=== PATIENT | male | born 1950 | race Caucasian/White ===

== ENCOUNTER 2024-03-21 02:15 | Emergency (ER) | payer OTHER, SELFPAY ==
[2024-03-21 02:15] VITALS: BMI 31.8
[2024-03-21 02:17] VITALS: BP 150/68
[2024-03-21 02:28] VITALS: BP 146/70
--- NOTE | 2024-03-21 02:31 | ED.GENMED ---
History of Present Illness
<AMAURI Garcia - Last Filed: 03/21/24 02:45>
General
Chief Complaint: Heart Rate Problem
Source: patient
Exam Limitations: none
Time Seen by Provider: 03/21/24 02:21
Travel History
Have you had any contact with someone who has COVID-19?: No
Do you have any symptoms of coronavirus? Fever > 100 degrees, chills, cough, shortness of breath, sore throat, loss of taste or smell, muscle aches, or headache?: No
History of Present Illness
History of Present Illness:
73 year old male with hx of afib on Eliquis, HTN, HLD, cardiac stent in place who presents with abnormal heart rate with associated 'sluggishness' that began 4 days ago. Pt states for the past 4 days he has been feeling fatigued. He states his
noticed that he has been looking not his normal self. States he feels this way when his heart rate is abnormal. He has an man on his phone connected to his watch that monitors his heart rate. He states for the past 4 days the rate has been
irregular, highest was 120s. Tonight he checked the rate on his phone and it was high and went to sleep hoping it would resolve. He woke up with the rate still abnormal, which prompted his visit. Currently, pt denies chest pain, SOB, head ache,
dizziness, fevers/chills, cough, recent illness, abdominal pain, n/v/d.
Past History
<AMAURI Garcia - Last Filed: 03/21/24 02:45>
Past History
ED Past Medical History: CAD, HTN, Hypercholesterolemia and VT
ED Past Surgical History: None and Cardiac
Social History
Tobacco: Non-smoker (Occasional cigar)
Alcohol: Occasional
Drug: None
Personal:
Living: with family
Employment: Employed
Family History
Family History: Negative Early CAD
Review of Systems
<ST JoseRI - Last Filed: 03/21/24 02:45>
Review of Systems
Allergies reviewed?: Yes
All Other Systems: ROS reviewed and negative except as documented in HPI and ROS
Constitutional: Reports fatigue
EENT: Reports no symptoms
Respiratory: Reports no symptoms
Cardiac: Reports no symptoms
ABD/GI: Reports no symptoms
: Reports no symptoms
Musculoskeletal: Reports no symptoms
Skin: Reports no symptoms
Neurological: Reports no symptoms
Endocrine: Reports no symptoms
Hematologic/Lymphatic: Reports no symptoms
Psychiatric: Reports no symptoms
Phy Exam
<ST JoseRI - Last Filed: 03/21/24 02:45>
General Physical Exam
General Presentation: well appearing and no apparent distress
General age: appears stated age
General Skin: warm and dry
General Habitus: normal
General Mental: alert
General Hydration: appears well hydrated
Cardiovascular Exam
Cardiovascular Exam: regular rate/rhythm, no edema, no gallop, no murmur and normal peripheral pulses
Pulmonary Exam
Pulmonary Exam: lungs clear, no respiratory distress, no rales, no crackles, no rhonchi, no wheezing and no cough
Skin Exam
Skin Exam: normal color and warm/dry
Psychiatric Exam
Psychiatric Exam: normal mood/affect
Course
<Maranda Ivey RUST - Last Filed: 03/21/24 02:45>
Orders/Labs/Results
Orders:
Orders
03/21/24 02:19
Electrocardiogram (*1) Urgent
Reason for Study: Atrial Fibrillation
EKG- Treatment ONCE
03/21/24 02:40
Complete Blood Count/With Diff Urgent
Comprehensive Metabolic Panel Urgent
Troponin I Urgent
03/21/24 03:40
Potassium Chloride 10% Elixir [KCl Elixir] 40 meq PO NOW STA
03/21/24 04:04
Electrocardiogram (*1) Urgent
Reason for Study: Atrial Fibrillation
03/21/24 04:05
EKG- Treatment ONCE
Abnormal Lab Results
03/21/24
02:40
WBC 12.3 H 10^3/uL
(4.8-10.8)
RBC 4.56 L 10^6/uL
(4.70-6.10)
MCH 31.1 H pg
(27.0-31.0)
MPV 13.3 H fL
(7.4-10.4)
Absolute Neuts (auto) 9.1 H 10^3/uL
(1.4-6.5)
Absolute Monos (auto) 1.6 H 10^3/uL
(0.1-0.6)
Lymphocytes % 10.6 L %
(20.5-51.1)
Monocytes % 13.3 H %
(1.7-9.3)
Potassium 3.3 L mmol/L
(3.5-5.1)
BUN 22 H mg/dl
(9-20)
Glucose 117 H mg/dl
(70-99)
03/21/24 02:40
03/21/24 02:40
Vital Signs
Initial and Last Documented VS:
Initial Vital Signs
Temp Pulse Resp BP Pulse Ox
98.1 F 72 22 150/68 96
03/21/24 02:17 03/21/24 02:17 03/21/24 02:17 03/21/24 02:17 03/21/24 02:17
Last Documented Vital Signs
Temp Pulse Resp BP Pulse Ox
98.1 F 69 17 132/72 94
03/21/24 02:17 03/21/24 03:00 03/21/24 03:00 03/21/24 03:00 03/21/24 03:00
<Ozzy Garcia, DO - Last Filed: 03/21/24 04:30>
Orders/Labs/Results
Orders:
Orders
03/21/24 02:19
Electrocardiogram (*1) Urgent
Reason for Study: Atrial Fibrillation
EKG- Treatment ONCE
03/21/24 02:40
Complete Blood Count/With Diff Urgent
Comprehensive Metabolic Panel Urgent
Troponin I Urgent
03/21/24 03:40
Potassium Chloride 10% Elixir [KCl Elixir] 40 meq PO NOW STA
03/21/24 04:04
Electrocardiogram (*1) Urgent
Reason for Study: Atrial Fibrillation
03/21/24 04:05
EKG- Treatment ONCE
Abnormal Lab Results
03/21/24
02:40
WBC 12.3 H 10^3/uL
(4.8-10.8)
RBC 4.56 L 10^6/uL
(4.70-6.10)
MCH 31.1 H pg
(27.0-31.0)
MPV 13.3 H fL
(7.4-10.4)
Absolute Neuts (auto) 9.1 H 10^3/uL
(1.4-6.5)
Absolute Monos (auto) 1.6 H 10^3/uL
(0.1-0.6)
Lymphocytes % 10.6 L %
(20.5-51.1)
Monocytes % 13.3 H %
(1.7-9.3)
Potassium 3.3 L mmol/L
(3.5-5.1)
BUN 22 H mg/dl
(9-20)
Glucose 117 H mg/dl
(70-99)
03/21/24 02:40
03/21/24 02:40
Vital Signs
Initial and Last Documented VS:
Initial Vital Signs
Temp Pulse Resp BP Pulse Ox
98.1 F 72 22 150/68 96
03/21/24 02:17 03/21/24 02:17 03/21/24 02:17 03/21/24 02:17 03/21/24 02:17
Last Documented Vital Signs
Temp Pulse Resp BP Pulse Ox
98.1 F 69 17 132/72 94
03/21/24 02:17 03/21/24 03:00 03/21/24 03:00 03/21/24 03:00 03/21/24 03:00
<AMAURI Garcia - Last Filed: 03/21/24 02:45>
MDM/Problems Addressed
Differential Diagnosis Includes:
afib
MDM/Problems Addressed:
73 year old male who presents with feeling sluggish with abnormal heart rate x 4 days.
Chronic conditions affecting care: HTN and Arrhythmia
<AMAURI Garcia - Last Filed: 03/21/24 02:45>
*Critical Care Note
Total Time (30-74mins, 75-104mins- exclusive of procedures): Not Applicable
<Ozzy Garcia DO - Last Filed: 03/21/24 04:30>
Update Note
Update Note:
Patient was noted to go into atrial fibrillation, he is rate controlled. Stable for discharge. Continue medications. Follow-up with cardiology. Return precautions given.
ED Attending Note
<AMAURI Garcia - Last Filed: 03/21/24 02:45>
-
Portions of this chart may have been created with voice recognition software.� Occasional wrong word or��sound alike� substitutions may have occurred due to the inherent limitations of voice recognition software.
<Ozzy Garcia DO - Last Filed: 03/21/24 04:30>
ED Attending Note
Patient seen and examined by attending physician: Yes
I performed a history and physical exam of patient and discussed management with resident, I reviewed resident's note and agree with documented findings and plan of care.: Yes
ED Attending Note:
I reviewed and agree with history and treatment plan by Maranda Ivey. My exam revealed
Physical Exam
General: no apparent distress, not acutely ill
Neck: supple. no meningeal signs. normal posterior pharynx
Heart: s1/s2 regular rate and rhythm, no murmur. equal radial
pulses.
HEENT: Pupils equal round reactive to light, EOMI
Lungs: no acute respiratory distress. clear bilaterally
Abdomen: normal bowel sounds. not tender. no CVAT
Neuro: alert and oriented. no focal neurological deficits cranial nerves II through XII intact
Skin: no rash
Psychiatric: well kept. interactive and cooperative
Extremities: no edema. no calf tenderness. negative homans. good distal pulses
EKG showing sinus rhythm with PVCs. No signs of atrial fibrillation. He has had episodes of tachycardia recently, none seen on monitor in ED. Will check baseline labs, if negative will discharge with cardiology follow-up.
Discharge Plan
Departure
Patient Disposition: Home (Routine Discharge)
Date of Disposition: 03/21/24
Time of Disposition: 03:41
Patient with high blood pressure during this ER visit?: Yes
Condition: Good
Discharge Problem:
Acute hypokalemia, Atrial fibrillation
Instructions: Hypokalemia, Atrial Fibrillation (DC), High-potassium diet, BLOOD PRESSURE
Prescriptions:
No Action
atorvastatin 40 MG tablet
40 mg PO QPM
carvedilol 12.5 MG tablet
3.25 mg PO BID
chlorthalidone 25 MG tablet
25 mg PO DAILY
losartan 100 MG tablet
100 mg PO DAILY
Eliquis 5 MG tablet
5 mg PO BID Qty: 30 0RF
acetaminophen [Tylenol] 325 MG capsule
650 mg PO PRN PRN (Reason: pain)
amlodipine 5 mg Tablet
5 mg PO BID
Referrals:
Willie Givens MD [Active] - Call in 1-3 days for appt
Brianna Castro PA-C [Family Provider] - Call in 1-3 days for appt
Interventions
Interventions:
*Risk Screen - Suicide Last Done: 03/21/24 02:17
*General Assessment Last Done: 03/21/24 02:32
*Neglect/Abuse Screening Last Done: 03/21/24 02:17
ED- Fall Risk Assessment Last Done: 03/21/24 02:36
*ED COVID-19 Vaccine History Last Done: 03/21/24 02:32
ED- Cardiac Assessment Last Done: 03/21/24 02:33
ED- Pulmonary Assessment Last Done: 03/21/24 02:33
Discharge Date and Time
Print Language: IRAQI
[2024-03-21 03:00] VITALS: BP 132/72
[2024-03-21 03:02] LABS: % Basophils 0.3 % (0-2); % Eosinophils 1.8 % (0-6); % Immature Granulocytes 0.3 % (0-0.5); % Lymphocytes 10.6 % (20.5-51.1); % Monocytes 13.3 % (1.7-9.3); % Neutrophils 73.7 % (42.2-75.2); Absolute Eosinophils 0.2 10^3/uL (0-0.7); Absolute Lymphocytes 1.3 10^3/uL (1.2-3.4); Absolute Monocytes 1.6 10^3/uL (0.1-0.6); Absolute Neutrophils 9.1 10^3/uL (1.4-6.5); Hematocrit 39.3 % (39.0-52.0); Hemoglobin 14.2 g/dL (13.0-18.0); Mean Corp Hgb Conc. 36.1 g/dL (33.0-37.0); Mean Corpuscular Hgb 31.1 pg (27.0-31.0); Mean Corpuscular Volume 86.2 fL (80.0-94.0); Mean Platelet Volume 13.3 fL (7.4-10.4); Nucleated Red Blood Cells % 0 % (-); Platelet Count 152 10^3/uL (130-400); Red Blood Cell Count 4.56 10^6/uL (4.70-6.10); Red Cell Dist. Width 12.2 % (11.5-14.5); White Blood Cell Count 12.3 10^3/uL (4.8-10.8)
[2024-03-21 03:15] LABS: ALT (SGPT) 23 U/L (0-50); AST (SGOT) 32 U/L (17-59); Albumin 3.9 g/dl (3.5-5.0); Alkaline Phosphatase 69 U/L (38-126); Blood Urea Nitrogen 22 mg/dl (9-20); Calcium 9.1 mg/dl (8.4-10.2); Carbon Dioxide 28 mmol/L (22-30); Chloride 103 mmol/L (98-107); Estimated Creatinine Clearance 80 ml/min; Glucose 117 mg/dl (70-99); Potassium 3.3 mmol/L (3.5-5.1); Sodium 138 mmol/L (135-145); Total Bilirubin 0.9 mg/dl (0.2-1.3); Total Protein 6.5 g/dl (6.3-8.2); eGFR > 60.00
[2024-03-21 03:27] LABS: Troponin I 0.015 ng/ml
[2024-03-21] MEDS: KCL ELIXIR 40 MEQ PO (03:52)
[2024-03-21 04:00] VITALS: BP 136/85
== END 2024-03-21 05:05 | disposition home or self-care (01) ==
LOC: EMR 02:15
PROVIDERS: EMERGENCY PHYSICIAN Emergency Medicine; FAMILY PHYSICIAN Physician Assistant Medical
DX: I48.91 Unspecified atrial fibrillation (principal); E87.6 Hypokalemia; I10 Essential (primary) hypertension; E78.00 Pure hypercholesterolemia, unspecified
CPT/HCPCS: 99284; 80053; 84484; 85025; 93005

== ENCOUNTER → 2024-05-31 13:04 | Outpatient (REF) | payer OTHER, SELFPAY | LOC: MRI 3T 13:04 | PROVIDERS: ATTENDING PHYSICIAN Radiology Radiation Oncology; FAMILY PHYSICIAN Physician Assistant Medical | DX: C61 Malignant neoplasm of prostate (principal) | CPT/HCPCS: 72197; A9575 ==

== ENCOUNTER → 2024-07-13 12:16 | Outpatient (REF) | payer OTHER, SELFPAY | LOC: PET 12:16 | PROVIDERS: ATTENDING PHYSICIAN Radiology Radiation Oncology | DX: C61 Malignant neoplasm of prostate (principal) | CPT/HCPCS: 78815 ==

== ENCOUNTER 2024-08-26 07:50 | Day surgery (SDC) | payer OTHER, SELFPAY ==
[2024-08-05 10:09] VITALS: BMI 32.0
[2024-08-05 10:43] LABS: % Basophils 0.6 % (0-2); % Eosinophils 4.7 % (0-6); % Immature Granulocytes 0.4 % (0-0.5); % Lymphocytes 24.6 % (20.5-51.1); % Monocytes 12.4 % (1.7-9.3); % Neutrophils 57.3 % (42.2-75.2); Absolute Eosinophils 0.2 10^3/uL (0-0.7); Absolute Lymphocytes 1.2 10^3/uL (1.2-3.4); Absolute Monocytes 0.6 10^3/uL (0.1-0.6); Absolute Neutrophils 2.8 10^3/uL (1.4-6.5); Hematocrit 43.1 % (39.0-52.0); Hemoglobin 14.6 g/dL (13.0-18.0); Mean Corp Hgb Conc. 33.9 g/dL (33.0-37.0); Mean Corpuscular Hgb 29.6 pg (27.0-31.0); Mean Corpuscular Volume 87.2 fL (80.0-94.0); Mean Platelet Volume 12.8 fL (7.4-10.4); Nucleated Red Blood Cells % 0 % (-); Platelet Count 188 10^3/uL (130-400); Red Blood Cell Count 4.94 10^6/uL (4.70-6.10); Red Cell Dist. Width 12.7 % (11.5-14.5); White Blood Cell Count 4.9 10^3/uL (4.8-10.8)
[2024-08-05 10:52] LABS: INR 1.23; PT 15.4 Sec (11.4-14.6)
[2024-08-05 11:19] LABS: ALT (SGPT) 24 U/L (0-50); AST (SGOT) 30 U/L (17-59); Albumin 4.1 g/dl (3.5-5.0); Alkaline Phosphatase 62 U/L (38-126); Blood Urea Nitrogen 21 mg/dl (9-20); Calcium 9.6 mg/dl (8.4-10.2); Carbon Dioxide 29 mmol/L (22-30); Chloride 103 mmol/L (98-107); Estimated Creatinine Clearance 69 ml/min; Glucose 110 mg/dl (70-99); Magnesium 2.1 mg/dl (1.6-2.3); Sodium 142 mmol/L (135-145); Total Bilirubin 1.4 mg/dl (0.2-1.3); Total Protein 6.7 g/dl (6.3-8.2); eGFR > 60.00
--- NOTE | 2024-08-05 12:10 | HPS.HSE ---
Family Physician
-
Family Physician: Brianna Castro
Chief Complaint
-
Paroxysmal atrial fibrillation.
History of Present Illness
The patient is a 73 year old male presenting today with paroxysmal atrial fibrillation. He was first diagnosed with atrial fibrillation in 2019. The patient describes a history of palpitations, exertional dyspnea, and fatigue associated
with this diagnosis. He previously underwent 2 cardioversions secondary to his arrhythmia. He is on current pharmacological therapy with Carvedilol. He has been compliant with Eliquis for oral anticoagulation. He notes that his current symptoms
greatly interfere with his activities of daily living and overall impact his quality of life. He is interested in pursuing pulmonary vein isolation for further arrhythmia management. He denies any significant complaints today such as chest pain,
shortness of breath at rest, nausea, vomiting, diarrhea, lightheadedness, dizziness, cough, sore throat, or fever.
Medical History
Past Medical History
Past Medical History: Reports Other
Additional Past Medical History:
1. Paroxysmal atrial fibrillation, status post cardioversion x2; pharmacological therapy with Carvedilol, oral anticoagulation with Eliquis.
2. Hypertension.
3. Hyperlipidemia.
4. CAD/anterior STEMI complicated by ventricular fibrillation arrest, 2010, status post PCI with bare metal stent to LAD.
5. PVCs.
6. Incomplete right bundle branch block.
7. Venous insufficiency.
8. Obstructive sleep apnea, improving with weight loss.
9. Diverticulosis.
10. Right renal angiolipoma per previous imaging.
11. Remote migraines.
12. Prostate cancer, diagnosed 2020, awaiting radiation therapy.
13. Impaired fasting glucose.
14. Obesity, BMI 32.0.
15. Infrequent cigar use.
16. Daily alcohol.
Past Surgical History: Reports Other
Additional Past Surgical History:
1. Cardioversion x2.
2. PCI with bare metal stent to LAD.
3. Extraction of metal from left calf.
4. Prostate biopsy.
5. Colonoscopy x4.
Social History
Tobacco: Other (He is a former less than 1 pack per day cigarette smoker who quit cigarettes in his 30's. He reports current but infrequent cigar smoking. )
Alcohol: Other (He drinks 2 beers 'most nights'. )
Personal:
Living: Other (He lives with his in a 2 story home. )
Family History
Family History: Not pertinent
Allergies / Home Medications
Allergies reflects when Allergies were last updated in [facility].
Home Medications with original date entered in [facility]
Allergy/Medication List:
Home medications:
1. Tylenol 650 mg p.o. every 4 hours as needed.
2. Amlodipine 5 mg p.o. daily.
3. Eliquis 5 mg p.o. twice a day.
4. Atorvastatin 40 mg p.o. every evening.
5. Carvedilol 6.25 mg p.o. twice a day.
6. Chlorthalidone 25 mg p.o. daily.
7. Losartan 100 mg p.o. daily.
Allergies. Penicillin. [place] nuts.
Review of Systems
-
A 12 point ROS was completed and negative except as noted: Yes
Physical Exam
Vital Signs
Blood pressure 121/80. Heart rate 93. Respirations 18. Pulse ox 98% on room air.
Height 6 feet. Weight 106.9 kg. BMI 32.0.
Physical Exam
General: Well Developed, Well Nourished and No Apparent Distress
HEENT: NormoCephalic, Moist mucous membranes and Atraumatic
Respiratory: Clear
Cardiac: Irregular Rhythm
GI: Soft, Non Tender, Non Distended and Other (Obese. )
Musculoskeletal: Normal Gait & Station
Skin: Warm and Dry
Neuro: AO x 3 and Nonfocal/grossly intact
Laboratory Results
-
08/05/24 10:18
08/05/24 10:18
Laboratory Results
PT 15.4 Sec (11.4-14.6) H 08/05/24 10:18
INR 1.23 08/05/24 10:18
Total Bilirubin 1.4 mg/dl (0.2-1.3) H 08/05/24 10:18
AST 30 U/L (17-59) 08/05/24 10:18
ALT 24 U/L (0-50) 08/05/24 10:18
Alkaline Phosphatase 62 U/L (38-126) 08/05/24 10:18
Blood type A positive.
EKG 08/05/2024: Atrial fibrillation. Incomplete right bundle branch block. Prolonged QT.
Chest CT 08/05/2024: Short segment common vestibule for the left superior and inferior pulmonary veins, fairly commonly seen and considered normal variant. No evidence for left atrial thrombus.
Stress echocardiogram 03/11/2022: Normal Stress Echocardiogram with normal hemodynamic response to exercise. Frequent PVCs during the study. Good exercise capacity for age. Overall, low risk stress test.
Impression/Plan
-
IMPRESSION/PLAN:
1. Paroxysmal atrial fibrillation: The patient is in need of pulmonary vein isolation with Dr. Torrey Barrera on 08/26/2024. The benefits and risks of the procedure have been explained to the patient. The patient understands these risks and wishes to
proceed. He will not require a pre-procedural transesophageal echocardiogram as he has been compliant with his home oral anticoagulation. He will remain on uninterrupted Eliquis prior to his procedure.
[2024-08-26] VITALS (9 sets, daily range): BP systolic 100–139; BP diastolic 68–97; BMI 31.8
[2024-08-26 11:36] LABS: ACT-LR - POC 290 Seconds (116-155)
[2024-08-26 11:58] LABS: ACT-LR - POC 290 Seconds (116-155)
--- NOTE | 2024-08-26 12:17 | ITS.CL.ABL ---
[employer] - Ablation
Ablation
Procedure Report:
ELECTROPHYSIOLOGY ABLATION STUDY
�
DATE:: August 26, 2024�����������������������������REFERRING: Dr. Willie Givens
�
INDICATION: Persistent supraventricular tachycardia in the form of atrial fibrillation.��
�
HISTORY: See H and P.� Discussed class I class III antiarrhythmic drug therapy and the patient opted for pulmonary vein isolation procedure
�
ANTIARRHYTHMIC DRUG: As above
�
PRE-PROCEDURE CHIOMA: No intracardiac thrombus on intracardiac ultrasound nor preablation CT scan
�
PRESENTING RHYTHM: AF
�
'TIME-OUT':��called and confirmed.
�
SEDATION/ANESTHESIA:��provided via the anesthesia department using general anesthesia (LMA).
�
INTRAVENOUS/ARTERIAL ACCESS:
Right femoral venous - 8Fr
Left femoral venous - 8 Fr, 6 Fr
Ultrasound guidance for bilateral femoral vein access was utilized by me to obtain access with demonstration of normal anatomy
CHADS-VASC Score:
Vascade vascular closure was utilized for femoral venous access closure
HAS-Bled Score
�
PROCEDURE:
1.��A decapolar CS catheter was placed within the CS for mapping and pacing.��This was also used as the reference catheter for the 3-D map.
�
2. The intracardiac ultrasound catheter was positioned in the RA to identify the FO for targeting of transseptal puncture, assist��in identification of the pulmonary vein ostia, monitoring pre and post ablation pulmonary vein flow velocities,
monitoring for 'bubble' formation during RF application as a sign of thermal injury,��and to monitor for pericardial effusion during mapping and ablation procedure.���Left atrial size, LV ejection fraction, and pulmonary vein flows were monitored
pre and post ablation procedure. The other valves were inspected and found to be free of significant regurgitation or stenosis.
�
3.��Half of the calculated heparin bolus was administered prior to the first transeptal puncture.��Transseptal puncture was performed to diagnose RA and LA pressure so that safety of LA mapping and ablation could be further assessed, and to access
the left atrium and pulmonary veins for mapping and ablation.��This entailed advancing an 16 [place] Contour sheath and needle apparatus with dilator into the superior vena cava and withdrawing both (monitoring intracardiac ultrasound, fluoroscopy
and tip pressure) with the tip oriented toward the atrial septum.��The fossa ovalis was engaged (indicated by sudden displacement of the sheath tip as well as tenting of the fossa seen on intracardiac ultrasound).��Left atrial access required a pass
with the [place] needle extended.��Left atrial catheter position was confirmed by pressure monitoring (RA mean pressure 8 mm Hg and LA mean presure 14 mm Hg), LA saturation (99%),��as well as fluoroscopy.��The sheath was advanced over the
dilator and positioned in the left atrium.��This procedure was repeated for the Agilis sheath.��The remainder of the calculated heparin bolus was administered and heparin was
infused to maintain ACT at 300 -350 seconds throughout the case.
�
4.��RA pacing was performed via the proximal decapolar poles and LA pacing was performed via the distal decapolr poles.
�
5. A decapolar catheter was first positioned at the His position for His Bundle recording which was tagged via the 3-D Navex sytem, and then passed to the RVA for RV pacing and recording.
�
6. The multipolar and PFA catheter were placed in each of the LIPV, LSPV, RSPV and the RIPV.��
�
7.��Next, a 3-D map was created using Navex.���A 3-D reconstructed CT image was compared to the 3-D Navex map to assist in anatomic interpretation, mapping and ablation.��The CT image and the NavX image were fused.
�
8. All 4 pulmonary veins were addressed separately in the left atrial posterior wall was ablated as well with a total of 105 PFA lesions. Entrance block was confirmed in all 4 pulmonary veins and the left atrial posterior wall and the patient was
converted to sinus rhythm. In sinus rhythm interest exit block was achieved in the posterior wall in all 4 pulmonary veins. Additional lesions were given to the roof and the central portion of the posterior wall and there was electrical silence of
the posterior wall from the roof down to the floor 1 cm below the inferior veins.
�
9. An RF line was also placed at the IVC-TVA isthmus to interupt the potential typical atrial flutter circuit.��At the end of RF at this site, pacing from the lateral side of the line and the medial side of the line was performed to evaluate for
bidirectinal block.
�
TOTAL FLOURO TIME: 14.6 minutes 102 mGy
�
TOTAL RF DURATION: 0 minutes
�
REVERSAL OF HEPARIN: 35 mg of protamine, slow IV administration
�
COMPLICATIONS:
None
Intracardiac US shows no pericardial effusion post ablation.
�
SUMMARY:��
Complex left atrial mapping and ablation.
Isolation of all 4 pulmonary veins and the left atrial posterior wall as noted
�
RECOMMENDATIONS:
1. Out of bed and ambulate in 2 hours
2. Resume anticoagulation
3.��Consider CV discharge
4.��Outpatient follow-up with Dr. Givens
�
Copy to: Dr. Willie Givens
�
--- NOTE | 2024-08-26 14:18 | PTCARENOTE ---
Bedside report received from Palma MCGOVERN for break relief.
--- NOTE | 2024-08-26 14:39 | PTCARENOTE ---
Post Ablation education shhet for groin care and activity discussed. Pt and able to teach back.
--- NOTE | 2024-08-26 15:26 | W.PN.UPDATE ---
Update Note
Progress Note Update
73 yo WM s/p PVI (same day) He denies cp, sob, mirza diet, voiding, amb w/o dizziness, EKG SR, b/l groins VASCADE c/d/i. He will take Eliquis at home tonight. Activity restrictions reviewed. He will f/u Dr. Givens in 1 mo. He is for d/c home after
330pm.
SUMMARY:��
Complex left atrial mapping and ablation.
Isolation of all 4 pulmonary veins and the left atrial posterior wall as noted
�
RECOMMENDATIONS:
1. Out of bed and ambulate in 2 hours
2. Resume anticoagulation
3.��Consider CV discharge
4.��Outpatient follow-up with Dr. Givens
�
Copy to: Dr. Willie Givens
�
== END 2024-08-26 16:00 | disposition home or self-care (01) ==
LOC: CATH 07:50
PROVIDERS: ATTENDING PHYSICIAN Internal Medicine Cardiovascular Disease; FAMILY PHYSICIAN Physician Assistant Medical; OTHER PHYSICIAN Internal Medicine Interventional Cardiology
DX: I48.0 Paroxysmal atrial fibrillation (principal); I47.10 Supraventricular tachycardia, unspecified; I25.10 Atherosclerotic heart disease of native coronary artery without angina pectoris; I10 Essential (primary) hypertension; E78.5 Hyperlipidemia, unspecified; I45.10 Unspecified right bundle-branch block; I25.2 Old myocardial infarction; Z95.5 Presence of coronary angioplasty implant and graft; G47.33 Obstructive sleep apnea (adult) (pediatric); Z85.46 Personal history of malignant neoplasm of prostate; E66.9 Obesity, unspecified; Z68.32 Body mass index [BMI] 32.0-32.9, adult; F17.290 Nicotine dependence, other tobacco product, uncomplicated; Z79.01 Long term (current) use of anticoagulants
CPT/HCPCS: C1732; C1894; C1730; C1769; C1892; C1759; C1733; C1766; 36415; 75572; 80053; 83735; 85025; 85347; 85610; 86850; 86900; 86901; 93005; 93656; 93657; C1760; Q9967

== ENCOUNTER → 2024-10-11 13:21 | Outpatient (REF) | payer OTHER, SELFPAY | LOC: RCS 13:21 | PROVIDERS: ATTENDING PHYSICIAN Internal Medicine Interventional Cardiology; FAMILY PHYSICIAN Physician Assistant Medical | DX: I48.0 Paroxysmal atrial fibrillation (principal) | CPT/HCPCS: 93306 ==

== ENCOUNTER → 2024-10-28 07:34 | Day surgery (SDC) | payer OTHER, SELFPAY ==
--- NOTE | 2024-10-28 09:10 | ITS.CL.CARDI ---
[employer] - Cardioversion
Cardioversion
Procedure Report:
Date of Procedure: 10/28/24
Procedure: Cardioversion
Indication: Symptomatic atrial fibrillation
Performing Physician: Toño Grimm MD
Technique: The patient was brought to the holding area. Signed informed consent was obtained. A time out was called and performed. The patient was anesthetized by the anesthesia service. Anticoagulation status was reviewed and appropriate. R2 pads
were placed anteriorly and posteriorly. After CHIOMA revealed no LA appendage thrombus, A 200 J synchronized biphasic shock restored normal sinus rhythm without significant bradycardia. There were no complications.
Conclusion: Uncomplicated cardioversion from atrial fibrillation to sinus rhythm.
Recommendation: Routine post cardioversion care. Continue fpc anticoagulation.
== END ==
LOC: CATH 07:34
PROVIDERS: ATTENDING PHYSICIAN Internal Medicine Cardiovascular Disease; FAMILY PHYSICIAN Physician Assistant Medical; OTHER PHYSICIAN Internal Medicine Interventional Cardiology
DX: I48.0 Paroxysmal atrial fibrillation (principal); I08.1 Rheumatic disorders of both mitral and tricuspid valves; I45.10 Unspecified right bundle-branch block; I10 Essential (primary) hypertension; E78.5 Hyperlipidemia, unspecified; I25.10 Atherosclerotic heart disease of native coronary artery without angina pectoris; I25.2 Old myocardial infarction; Z95.5 Presence of coronary angioplasty implant and graft; G47.33 Obstructive sleep apnea (adult) (pediatric); Z85.46 Personal history of malignant neoplasm of prostate; Z87.891 Personal history of nicotine dependence; Z79.01 Long term (current) use of anticoagulants
CPT/HCPCS: 93312; 93320; 93325; 92960; 93005

== ENCOUNTER → 2025-03-14 08:16 | Outpatient (REF) | payer OTHER, SELFPAY | LOC: RAD 08:16 | PROVIDERS: ATTENDING PHYSICIAN Family Medicine Geriatric Medicine | DX: Z91.89 Other specified personal risk factors, not elsewhere classified (principal); Z79.818 Long term (current) use of other agents affecting estrogen receptors and estrogen levels | CPT/HCPCS: 77080 ==